=== PATIENT | female | born 1995 | race Caucasian/White ===

== ENCOUNTER → 2019-08-29 | Outpatient (CLI) | payer OTHER | LOC: MC.RAD 14:31 | DX: N63.11 Unspecified lump in the right breast, upper outer quadrant (principal) ==

== ENCOUNTER → 2019-09-05 | Outpatient (CLI) | payer OTHER | LOC: MC.RAD 13:00 | DX: N63.13 Unspecified lump in the right breast, lower outer quadrant (principal) ==